=== PATIENT | female | born 1970 | race African-American/Black ===

== ENCOUNTER 2018-04-14 18:23 | Emergency (ER) | payer SELFPAY ==
[~2018-04-14] VITALS: Ht 170.2 cm; Wt 55.0 kg
[2018-04-14 18:59] VITALS: BP 117/83
[2018-04-14 22:07] LABS: BASOPHILS % 0.6 % (0.0-2.0); EOSINOPHILS % 1.5 % (0.0-5.0); HEMATOCRIT. 38.9 % (36.0-48.0); LYMPHOCYTES % 30.2 % (20.0-50.0); MEAN CORPUSCULAR HEMOGLOBIN 29.7 pg (28.0-32.0); MEAN CORPUSCULAR VOLUME 88.9 fL (81.0-99.0); MEAN PLATELET VOLUME 7.8 fl (7.4-10.4); MONOCYTES % 11.6 % (2.0-8.0); NEUTROPHILS % 56.1 % (40.0-76.0); PLATELET 297 x1000/uL (130-400); RED BLOOD CELL COUNT 4.37 mill/uL (4.2-5.4); RED CELL DISTRIBUTION WIDTH 13.5 % (11.6-14.6)
[2018-04-14 22:10] LABS: CHLORIDE 104 mEq/L (98-107)
[2018-04-14 22:14] LABS: ETHANOL BLOOD < 10 mg/dL; PROTHROMBIN TIME 10.2 sec (9.1-11.1)
[2018-04-14 22:18] LABS: HCG SCREEN NEGATIVE
== END 2018-04-14 21:45 | disposition left against medical advice (07) ==
LOC: ER 18:23
DX: R10.13 Epigastric pain (principal); R11.10 Vomiting, unspecified; F32.9 Major depressive disorder, single episode, unspecified
CPT/HCPCS: 36415; 80053; 83690; 84484; 84703; 85025; 85610; 99283; G0482